=== PATIENT | male | born 1960 | race Caucasian/White ===

== ENCOUNTER → 2017-12-07 15:52 | Outpatient (CLI) | payer BC, SELFPAY ==
[2017-12-09 14:41] LABS: Fecal Immunochemical Test NOT DETECTED
== END ==
PROVIDERS: PCP Nurse Practitioner Family; Visit Provider Nurse Practitioner Family
DX: Z12.11 Encounter for screening for malignant neoplasm of colon (principal)
CPT/HCPCS: 82274

== ENCOUNTER 2020-09-02 17:40 | Emergency (ER) | payer BC, SELFPAY ==
[2020-09-02 17:46] VITALS: BP 149/67; PULSE 70; RESP 16; TEMP 37.2; O2SAT 95; BMI 26.6
--- NOTE | 2020-09-02 18:15 | PC.NURSE ---
Pt right elbox edematous, soft to touch, pt denies pain
--- NOTE | 2020-09-02 18:36 | ED.UPPEXIN ---
HPI - Extremity Injury (Upper) General Chief Complaint: Extremity Injury, Upper Stated Complaint: Bump on RT elbow Time Seen by Provider: 09/02/20 18:36 Source: patient Mode of arrival: Ambulatory Limitations: no limitations History of Present Illness HPI narrative: 60-year-old male comes emergency department with complaint of swelling of his right elbow. Patient states he had bumped it on a hard corner. Patient states within 5 minutes he developed swelling over the elbow itself. It is localized just to the elbow. He has some very mild tenderness at the point of the but denies any other injury or pain. Patient denies any redness, warmth or other skin changes. He denies any numbness or tingling. He denies any weakness. Patient does not have any pain with range of motion. Patient does take an aspirin daily. He has not had similar symptoms in the past. Related Data Home Medications Medication Instructions Recorded Confirmed Fish Oil (#FISH OIL) 1 iu PO Q DAY #0 03/18/11 04/15/18 ASPIRIN (Aspir-Low) 81 mg PO Q DAY #0 10/14/11 04/15/18 ibuprofen 600 mg PO Q8HP #0 10/14/11 04/15/18 ascorbic acid (vitamin C) 500 mg mg PO cap 04/15/18 04/15/18 capsule cholecalciferol (vitamin D3) 50 2,000 unit PO DAILY 04/15/18 04/15/18 mcg (2,000 unit) capsule Previous Rx's Medication Instructions Recorded lisinopril 10 mg tablet 10 mg PO Q DAY #60 tab 04/22/18 Allergies Allergy/AdvReac Type Severity Reaction Status Date / Time No Known Drug Allergies Allergy Unverified 04/15/18 08:27 Review of Systems Review of Systems ROS Unobtainable: All systems reviewed & are unremarkable except as noted in HPI and below Patient History Medical History Foot pain (~2011) Hyperlipidemia Hypertension Left bundle branch block (LBBB) (2013) Rupture of right patellar tendon Seizures (1965) Splinter in skin Surgical History Anesthesia History of vasectomy (2008) Normal coronary angiogram (12/24/13) S/P tendon repair (2013) Family History (Updated 10/10/14 @ 00:00 by Conversion Provider) Father Age: 90 Prostate cancer Hypertension Grandfather Stroke Grandmother Mental health problem Mother Age: 84 Hypertension Cancer of breast Grandfather Prostate cancer Sister Type I diabetes mellitus Sister Diabetes type 2, controlled Hypertension Grandmother No problems noted. Social History Smoking Status: Former smoker alcohol intake: current (A liter and a half of wine a week) substance use type: does not use Smoking Status: Former smoker alcohol intake frequency: 0-2 drinks per day Substance Use Type: does not use Exam Narrative Exam Narrative: GENERAL: Alert and oriented x three, well-nourished male in mild distress. HEENT: Head normocephalic, atraumatic, EOMI, pupils reactive, face symmetric, moist mucous membranes NECK: Supple, full range of motion EXTREMITIES: Normal range of motion, no clubbing or edema. Neurovascularly intact. Patient has full range of motion of the fingers, wrist and elbow and shoulder. Patient has very mild tenderness at the point of the elbow. Does not have any significant bony tenderness on exam. He has some mild swelling elbow over the area of the bursa which is soft and easily malleable. Patient has no warmth, erythema, laceration or skin changes. He has no swelling extending up the arm. He has 2+ radial pulse an cap refill less than 2 seconds in all 5 fingers. NEUROLOGICAL: Cranial nerves II through XII grossly intact. Moving all extremities SKIN: Warm, dry, no petechiae, no rashes or lesions. Initial Vital Signs Initial Vital Signs: Vital Signs Temperature 99.0 F 09/02/20 17:46 Pulse Rate 70 09/02/20 17:46 Respiratory Rate 16 09/02/20 17:46 Blood Pressure 149/67 H 09/02/20 17:46 Pulse Oximetry 95 09/02/20 17:46 Course Vital Signs Vital signs: Vital Signs - 8 hr 09/02/20 17:46 Temperature 99.0 F Pulse Rate 70 Respiratory Rate 16 Blood Pressure 149/67 H Pulse Oximetry 95 MDM - Extremity Injury (Upper) MDM Narrative Medical decision making narrative: This is a 60-year-old male with traumatic bursitis with mild swelling and no obvious laceration or skin changes. Patient has some mild tenderness. Patient defers any imaging and on exam my suspicion for fracture is low and feels is likely an appropriate choice. Return precautions were discussed as well as signs and symptoms to watch for. Discharge Plan Departure Patient Disposition: Home Clinical Impression: Bursitis due to trauma Instructions: DI for Bursitis Activity Restrictions/Additional Instructions: Follow with your physician if your symptoms are not improving in the next week to 2 weeks. You may use a compression bandage or Rickey wrap to the area. You may take Tylenol up to a 1000 mg every 8 hours as needed for pain. Continue home medications as prescribed. Please return for fevers, increasing redness, swelling, pain, inability to flex or extend her arm, new numbness, tingling or weakness or other new or concerning symptoms. Prescriptions: No Action Fish Oil (#FISH OIL) 1 iu PO Q DAY Qty: 0 RF: 0 ibuprofen 600 MG tablet 600 mg PO Q8HP Qty: 0 RF: 0 ASPIRIN (Aspir-Low) 81 mg PO Q DAY Qty: 0 RF: 0 lisinopril 10 mg tablet 10 mg PO Q DAY Qty: 60 RF: 0 ascorbic acid (vitamin C) 500 mg capsule PO RF: 0 cholecalciferol (vitamin D3) 2,000 unit capsule 2,000 unit PO DAILY RF: 0 Referrals: Didi Solomon ARNP [Primary Care Provider] -
[2020-09-02 19:15] VITALS: PULSE 72; RESP 16; O2SAT 98
== END 2020-09-02 19:16 | disposition home or self-care (01) ==
PROVIDERS: Emergency Provider Emergency Medicine; PCP Internal Medicine
DX: M71.9 Bursopathy, unspecified (principal)
CPT/HCPCS: 99281

== ENCOUNTER 2021-03-14 07:21 | Emergency (ER) | payer BC, SELFPAY ==
[2021-03-14] VITALS (21 sets, daily range): BP systolic 106–187; BP diastolic 62–100; PULSE 55–69; RESP 14–29; TEMP 36.4; O2SAT 93–98; BMI 26.6
--- NOTE | 2021-03-14 07:27 | DI.RAD.S_ITS ---
PROCEDURE: XR CHEST 1V INDICATIONS: chest pain TECHNIQUE: One view of the chest was acquired. COMPARISON: [facility], , CHEST 2 VIEW, 11/27/2009, 11:54. FINDINGS: Surgical changes and devices: None. Lungs and pleura: Lungs are clear. No pleural effusions or pneumothorax. Mediastinum: Mediastinal contours appear normal. Heart size is minimally prominent. Bones and chest wall: No suspicious bony lesions. Overlying soft tissues appear unremarkable. IMPRESSION: No acute pulmonary process. Dictated by: Buffy Beaulieu M.D. on 03/14/2021 at 8:01 Approved by: Buffy Beaulieu M.D. on 03/14/2021 at 10:33
--- NOTE | 2021-03-14 07:48 | ED_ITS ---
HPI - Dizziness <Low Callahan MD - Last Filed: 03/25/21 07:04> General Chief Complaint: Dizziness Stated Complaint: DIZZINESS, HEADACHE LAST NIGHT, HIGH BP Time Seen by Provider: 03/14/21 07:35 Source: patient Mode of arrival: Ambulatory Limitations: no limitations History of Present Illness HPI Narrative: Patient here for complaints of dizziness and resolved headache. Patient states started last night. Headache was very bile duct and diffuse. Has resolved. No headache today. Lightheaded feeling balance but no numbness tingling weakness. No slurred speech. No vision changes or hearing changes other than feeling pressure in the left ear greater than right. History of sinusitis. No cough cold congestion fever chills. No chest pain palpitations. Patient seen by primary care 1 week ago and had elevated blood pressure systolic 170. Had it checked the following day by himself at home and resolved. Usually systolic is 130. Has been on lisinopril for many years. Recently in the past 6 months lisinopril raised up to 20 mg daily in the morning. He took it this morning at 6:15 a.m. does have history of low heart rate and left bundle-branch block. History heart catheterization 8 years ago. Patient states it was normal. Related Data Home Medications Medication Instructions Recorded Confirmed Fish Oil (#FISH OIL) 1 iu PO Q DAY #0 03/18/11 04/15/18 ASPIRIN (Aspir-Low) 81 mg PO Q DAY #0 10/14/11 04/15/18 ibuprofen 600 mg tablet 600 mg PO Q8HP #0 10/14/11 04/15/18 ascorbic acid (vitamin C) 500 mg mg PO cap 04/15/18 04/15/18 capsule cholecalciferol (vitamin D3) 50 2,000 unit PO DAILY 04/15/18 04/15/18 mcg (2,000 unit) capsule Previous Rx's Medication Instructions Recorded lisinopril 10 mg tablet 10 mg PO Q DAY #60 tab 04/22/18 Allergies Allergy/AdvReac Type Severity Reaction Status Date / Time No Known Drug Allergies Allergy Verified 03/14/21 07:28 Review of Systems <Low Callahan MD - Last Filed: 03/25/21 07:04> Review of Systems Narrative: GENERAL: Denies chills, fatigue, malaise, fever, sweats. HEENT: Denies sinus pain, positive left ear pain, denies sore throat RESPIRATORY: Denies dyspnea, cough CARDIOVASCULAR: Denies chest pain, palpitations GASTROINTESTINAL: Denies nausea, vomiting, abdominal pain : Denies dysuria, frequency, hematuria MUSCULOSKELETAL: denies muscle or bony pain SKIN: Denies rash, skin lesions NEUROLOGIC: Denies weakness, numbness, positive for dizziness/headache ROS Unobtainable: All systems reviewed & are unremarkable except as noted in HPI and below Patient History <Low Callahan MD - Last Filed: 03/25/21 07:04> Medical History Foot pain (~2011) Hyperlipidemia Hypertension Left bundle branch block (LBBB) (2013) Rupture of right patellar tendon Seizures (1965) Splinter in skin Surgical History Anesthesia History of vasectomy (2008) Normal coronary angiogram (12/24/13) S/P tendon repair (2013) Family History Father Age: 91 Prostate cancer Hypertension Grandfather Stroke Grandmother Mental health problem Mother Age: 85 Hypertension Cancer of breast Grandfather Prostate cancer Sister Type I diabetes mellitus Sister Diabetes type 2, controlled Hypertension Grandmother No problems noted. Social History Smoking Status: Former smoker alcohol intake: current (A liter and a half of wine a week) substance use type: does not use Smoking Status: Former smoker alcohol intake frequency: 0-2 drinks per day Substance Use Type: does not use Exam <Low Callahan MD - Last Filed: 03/25/21 07:04> Narrative Exam Narrative: GENERAL: in no distress, not toxic not dyspneic HEAD: Normocephalic. EYES: Pupils equal round No scleral icterus. ENT: Mucous membranes moist. Clear tympanic membranes bilaterally. No effusions, nontender bilateral frontal and maxillary sinuses NECK: Trachea midline. CARDIOVASCULAR: Regular rate and rhythm without murmurs RESPIRATORY: Clear to auscultation. Breath sounds equal bilaterally. No wheezes, rales, or rhonchi. GASTROINTESTINAL: Abdomen soft, non-tender no peritoneal signs no epigastric tenderness bowel sounds present. EXTREMITIES: No gross deformities. BACK: No flank tenderness. NEURO: AOx4. Clear speech no facial droop steady self gait no foot drop. Light touch intact to bilateral face hands. Strong equal ethics instructor bilaterally and ankle flexion hip flexion and knee flexion. Steady Romberg, negative pronator drift SKIN: Warm and dry PSYCH: Not anxious, is cooperative Initial Vital Signs Initial Vital Signs: Vital Signs Temperature 97.6 F 03/14/21 07:22 Pulse Rate 69 03/14/21 07:22 Respiratory Rate 14 03/14/21 07:22 Blood Pressure 187/80 H 03/14/21 07:22 Pulse Oximetry 96 03/14/21 07:22 <Marcy Alfaro DO - Last Filed: 03/14/21 18:47> Initial Vital Signs Initial Vital Signs: Vital Signs Temperature 97.6 F 03/14/21 07:22 Pulse Rate 69 03/14/21 07:22 Respiratory Rate 14 03/14/21 07:22 Blood Pressure 187/80 H 03/14/21 07:22 Pulse Oximetry 96 03/14/21 07:22 Scores <Low Callahan MD - Last Filed: 03/25/21 07:04> NIH Stroke Scale Total NIH Stroke scale score: 0 <Marcy Alfaro DO - Last Filed: 03/14/21 18:47> NIH Stroke Scale Level of Conciousness: Alert, keenly responsive Ask month/age: Answers both questions correctly. Open/close eyes, close hand: Performs both tasks correctly Best gaze horizontal: Normal Visual ayala: No visual loss Facial palsy: Normal symetrical movement Left arm drift: No drift for full 10 sec Right arm drift: No drift for full 10 sec Left leg drift: No drift for full 5 sec Right leg drift: No drift for full 5 sec Limb ataxia: Absent Sensory on face/arms/legs: Normal, no sensory loss Best language: No aphasia, normal Dysarthria: Normal Extinction or inattention: No abnormality Total NIH Stroke scale score: 0 Course <Low Callahan MD - Last Filed: 03/25/21 07:04> Course Course Narrative: No new issues during course of stay. Reviewed lipase with patient. He drinks 1 glass of wine daily. Denies any abdominal pain no nausea or vomiting. 12 pm s/o dr alfaro, awaiting for available receiving facility with heart catheterization resources Orders Ordered: Discontinued Medications Aspirin (Aspirin 81 Mg Chew Tab) 324 mg PO NOW ONE Stop: 03/14/21 08:32 Last Admin: 03/14/21 08:41 Dose: 324 mg Documented by: MILENA Clopidogrel Bisulfate (Clopidogrel 75 Mg Tablet) 300 mg PO NOW ONE Stop: 03/14/21 08:32 Last Admin: 03/14/21 08:42 Dose: 300 mg Documented by: MILENA Heparin Sodium (Porcine) (Heparin 5,000 Unit/Ml Vial) 6,500 unit 80 unit/kg (6500 unit) IV NOW ONE Stop: 03/14/21 08:32 Last Admin: 03/14/21 08:53 Dose: 6,500 unit Documented by: MILENA Hydralazine HCl (Hydralazine 20 Mg/Ml Vial) 5 mg IV NOW ONE Stop: 03/14/21 08:34 Last Admin: 03/14/21 08:45 Dose: 5 mg Documented by: MILENA Heparin Sodium/Dextrose (Heparin Drip) 25,000 unit in 500 mls @ 19.595 mls/hr IV CONT BRITTNEY; Protocol Last Titration: 03/14/21 13:31 Dose: 0 units/kg/hr, 0 mls/hr Documented by: Admin: 03/14/21 08:58 Dose: 12 units/kg/hr, 19.595 mls/hr Documented by: MILENA Reevaluation(s) Reevaluation #1: Reviewed results with patient. Denies any abdominal pain. Drinks 1 glass of wine nightly. Denies any abdominal pain or nausea and vomiting. No back pain. Reviewed lipase with him. Time: 08:40 Consultations Consultation #1: Spoke with cardiology, dr tee, patient to be transferred for heart catheterization. He understands at this time shortage on staff and [place] hospitals. No beta-buck at this time due to low heart rate. Nitroglycerin could be given for high blood pressure. If Plavix heparin and aspirin. Consultation #2: Spoke with [facility] cardiology Dr. waggoner, he will accept patient providing bed availability Time: 11:26 Vital Signs Vital signs: Vital Signs - 8 hr 03/14/21 11:00 03/14/21 11:30 03/14/21 12:00 Pulse Rate 58 L 59 L 57 L Respiratory Rate 17 18 18 Blood Pressure 128/69 120/69 135/75 Pulse Oximetry 95 95 94 03/14/21 12:30 03/14/21 13:00 03/14/21 13:30 Pulse Rate 56 L 56 L 64 Respiratory Rate 17 20 18 Blood Pressure 127/77 142/77 H 131/75 Pulse Oximetry 94 93 96 03/14/21 14:00 03/14/21 14:30 03/14/21 15:00 Pulse Rate 55 L 58 L 61 Respiratory Rate 21 22 18 Blood Pressure 124/73 158/88 H 149/86 H Pulse Oximetry 96 97 95 03/14/21 15:30 03/14/21 16:00 03/14/21 16:30 Pulse Rate 56 L 62 61 Respiratory Rate 19 28 H 26 H Blood Pressure 127/74 135/73 106/65 Pulse Oximetry 95 96 93 03/14/21 17:00 03/14/21 17:30 03/14/21 18:00 Pulse Rate 63 58 L 58 L Respiratory Rate 22 29 H 25 H Blood Pressure 128/62 137/66 134/73 Pulse Oximetry 94 94 94 <Marcy Alfaro, DO - Last Filed: 03/14/21 18:47> Orders Ordered: Discontinued Medications Aspirin (Aspirin 81 Mg Chew Tab) 324 mg PO NOW ONE Stop: 03/14/21 08:32 Last Admin: 03/14/21 08:41 Dose: 324 mg Documented by: MILENA Clopidogrel Bisulfate (Clopidogrel 75 Mg Tablet) 300 mg PO NOW ONE Stop: 03/14/21 08:32 Last Admin: 03/14/21 08:42 Dose: 300 mg Documented by: MILENA Heparin Sodium (Porcine) (Heparin 5,000 Unit/Ml Vial) 6,500 unit 80 unit/kg (6500 unit) IV NOW ONE Stop: 03/14/21 08:32 Last Admin: 03/14/21 08:53 Dose: 6,500 unit Documented by: MILENA Hydralazine HCl (Hydralazine 20 Mg/Ml Vial) 5 mg IV NOW ONE Stop: 03/14/21 08:34 Last Admin: 03/14/21 08:45 Dose: 5 mg Documented by: MILENA Heparin Sodium/Dextrose (Heparin Drip) 25,000 unit in 500 mls @ 19.595 mls/hr IV CONT BRITTNEY; Protocol Last Titration: 03/14/21 13:31 Dose: 0 units/kg/hr, 0 mls/hr Documented by: Admin: 03/14/21 08:58 Dose: 12 units/kg/hr, 19.595 mls/hr Documented by: MILENA Vital Signs Vital signs: Vital Signs - 8 hr 03/14/21 11:00 03/14/21 11:30 03/14/21 12:00 Pulse Rate 58 L 59 L 57 L Respiratory Rate 17 18 18 Blood Pressure 128/69 120/69 135/75 Pulse Oximetry 95 95 94 03/14/21 12:30 03/14/21 13:00 03/14/21 13:30 Pulse Rate 56 L 56 L 64 Respiratory Rate 17 20 18 Blood Pressure 127/77 142/77 H 131/75 Pulse Oximetry 94 93 96 03/14/21 14:00 03/14/21 14:30 03/14/21 15:00 Pulse Rate 55 L 58 L 61 Respiratory Rate 21 22 18 Blood Pressure 124/73 158/88 H 149/86 H Pulse Oximetry 96 97 95 03/14/21 15:30 03/14/21 16:00 03/14/21 16:30 Pulse Rate 56 L 62 61 Respiratory Rate 19 28 H 26 H Blood Pressure 127/74 135/73 106/65 Pulse Oximetry 95 96 93 03/14/21 17:00 03/14/21 17:30 03/14/21 18:00 Pulse Rate 63 58 L 58 L Respiratory Rate 22 29 H 25 H Blood Pressure 128/62 137/66 134/73 Pulse Oximetry 94 94 94 MDM - Dizziness <Low Callahan MD - Last Filed: 03/25/21 07:04> Differential Diagnosis Differential diagnosis: Likely adverse reaction to drug, benign paroxysmal positional vertigo, orthostatic hypotension, vertebral basilar insufficiency, cerebrovascular accident, acute vestibular neuronitis, transient cerebral ischemia and other (Considered neurological source of dizziness. No CT indicated this time. No focal deficits./non-STEMI) Lab Data Result diagrams: 03/14/21 07:33 03/14/21 07:33 Labs: Lab Results 03/14/21 03/14/21 03/14/21 Range/Units 07:33 07:33 07:33 WBC 4.7 (4.5-11.0) X10^3/uL RBC 4.49 L (4.5-5.9) X10^6/uL Hgb 14.3 (13.5-17.5) g/dL Hct 42.0 (41-53) % MCV 93.6 (80-100) fL MCH 31.9 (26-34) PG MCHC 34.0 (30-36) % RDW 13.3 (11.6-14.8) % Plt Count 180 (150-400) X10^3/uL Neut % (Auto) 60.5 (50-75) % Lymph % (Auto) 27.4 (25-40) % Centre % (Auto) 9.8 (3-14) % Eos % (Auto) 1.6 L (2-4) % Baso % (Auto) 0.7 (0-2) % Neut # (Auto) 2900 (7666-8442) /uL Lymph # (Auto) 1300 (0802-6156) /uL Centre # (Auto) 500 (0-900) /uL Eos # (Auto) 100 (0-450) /uL Baso # (Auto) 0 (0-100) /uL PT 12.3 (10.1-12.7) SECONDS INR 1.1 (0.9-1.3) APTT 37 H (26.4-36.2) SECONDS Sodium 137 (137-145) mmol/L Potassium 4.5 (3.4-5.1) mmol/L Chloride 101 (98-107) mmol/L Carbon Dioxide 29 (22-32) mmol/L BUN 16 (9-20) mg/dL Creatinine 0.88 (0.66-1.25) mg/dL Estimated GFR > 60.0 (>60) mL/min BUN/Creatinine Ratio 18.2 (6-22) Glucose 160 H (80-110) mg/dL Calcium 9.5 (8.4-10.2) mg/dL Total Bilirubin 0.6 (0.2-1.3) mg/dL AST 30 (17-59) IU/L ALT 32 (<50) IU/L Alkaline Phosphatase 47 (38-126) U/L Total Creatine Kinase 111 (55-170) U/L CK-MB (CK-2) 1.46 (<2.37) ng/mL CK-MB (CK-2) Rel Index 1.3 L (1.5-5.0) % Troponin I 0.041 H (0.01-0.034) ng/mL Total Protein 6.8 (6.3-8.2) g/dL Albumin 4.2 (3.5-5.0) g/dL Globulin 2.6 (1.7-4.1) g/dL Albumin/Globulin Ratio 1.6 (1.0-2.8) Lipase 1211 H (23-300) U/L SARS-CoV-2 (PCR) (Negative) 03/14/21 03/14/21 03/14/21 Range/Units 09:37 11:45 11:45 WBC (4.5-11.0) X10^3/uL RBC (4.5-5.9) X10^6/uL Hgb (13.5-17.5) g/dL Hct (41-53) % MCV (80-100) fL MCH (26-34) PG MCHC (30-36) % RDW (11.6-14.8) % Plt Count (150-400) X10^3/uL Neut % (Auto) (50-75) % Lymph % (Auto) (25-40) % Centre % (Auto) (3-14) % Eos % (Auto) (2-4) % Baso % (Auto) (0-2) % Neut # (Auto) (0042-5069) /uL Lymph # (Auto) (9473-0419) /uL Centre # (Auto) (0-900) /uL Eos # (Auto) (0-450) /uL Baso # (Auto) (0-100) /uL PT (10.1-12.7) SECONDS INR (0.9-1.3) APTT (26.4-36.2) SECONDS Sodium (137-145) mmol/L Potassium (3.4-5.1) mmol/L Chloride (98-107) mmol/L Carbon Dioxide (22-32) mmol/L BUN (9-20) mg/dL Creatinine (0.66-1.25) mg/dL Estimated GFR (>60) mL/min BUN/Creatinine Ratio (6-22) Glucose (80-110) mg/dL Calcium (8.4-10.2) mg/dL Total Bilirubin (0.2-1.3) mg/dL AST (17-59) IU/L ALT (<50) IU/L Alkaline Phosphatase (38-126) U/L Total Creatine Kinase 103 (55-170) U/L CK-MB (CK-2) 1.32 (<2.37) ng/mL CK-MB (CK-2) Rel Index 1.3 L (1.5-5.0) % Troponin I 0.025 (0.01-0.034) ng/mL Total Protein (6.3-8.2) g/dL Albumin (3.5-5.0) g/dL Globulin (1.7-4.1) g/dL Albumin/Globulin Ratio (1.0-2.8) Lipase 621 H (23-300) U/L SARS-CoV-2 (PCR) Negative (Negative) 03/14/21 Range/Units 16:00 WBC (4.5-11.0) X10^3/uL RBC (4.5-5.9) X10^6/uL Hgb (13.5-17.5) g/dL Hct (41-53) % MCV (80-100) fL MCH (26-34) PG MCHC (30-36) % RDW (11.6-14.8) % Plt Count (150-400) X10^3/uL Neut % (Auto) (50-75) % Lymph % (Auto) (25-40) % Centre % (Auto) (3-14) % Eos % (Auto) (2-4) % Baso % (Auto) (0-2) % Neut # (Auto) (0930-2061) /uL Lymph # (Auto) (0568-2442) /uL Centre # (Auto) (0-900) /uL Eos # (Auto) (0-450) /uL Baso # (Auto) (0-100) /uL PT (10.1-12.7) SECONDS INR (0.9-1.3) APTT (26.4-36.2) SECONDS Sodium (137-145) mmol/L Potassium (3.4-5.1) mmol/L Chloride (98-107) mmol/L Carbon Dioxide (22-32) mmol/L BUN (9-20) mg/dL Creatinine (0.66-1.25) mg/dL Estimated GFR (>60) mL/min BUN/Creatinine Ratio (6-22) Glucose (80-110) mg/dL Calcium (8.4-10.2) mg/dL Total Bilirubin (0.2-1.3) mg/dL AST (17-59) IU/L ALT (<50) IU/L Alkaline Phosphatase (38-126) U/L Total Creatine Kinase (55-170) U/L CK-MB (CK-2) (<2.37) ng/mL CK-MB (CK-2) Rel Index (1.5-5.0) % Troponin I 0.025 (0.01-0.034) ng/mL Total Protein (6.3-8.2) g/dL Albumin (3.5-5.0) g/dL Globulin (1.7-4.1) g/dL Albumin/Globulin Ratio (1.0-2.8) Lipase (23-300) U/L SARS-CoV-2 (PCR) (Negative) Imaging Data Chest x-ray: Radiologist's Impression: [address] [address] XRay Report Signed Patient: Ulisses Luong MR#: [id number] : 1960 Acct:[id number] Age/Sex: 60 / M Date of Service: 03/14/21 Loc: ED Accession Number: [id number] ?? Procedure: XR chest 1V Ordering Provider: Low Callahan MD PROCEDURE:? XR CHEST 1V ? INDICATIONS:? chest pain ? TECHNIQUE:? One view of the chest was acquired.? ? COMPARISON:? [facility], , CHEST 2 VIEW, 11/27/2009, 11:54. ? FINDINGS:? ? Surgical changes and devices:? None.? ? Lungs and pleura:? Lungs are clear.? No pleural effusions or pneumothorax.? ? Mediastinum:? Mediastinal contours appear normal.? Heart size is minimally prominent.? ? Bones and chest wall:? No suspicious bony lesions.? Overlying soft tissues appear unremarkable.? ? IMPRESSION:? No acute pulmonary process. ? ? Dictated by: Buffy Beaulieu M.D. on 03/14/2021 at 8:01 ? ? Approved by: Buffy Beaulieu M.D. on 03/14/2021 at 10:33 ? ECG Data Interpretation: Sinus bradycardia rate 55 left bundle branch block, history of left bundle- branch block, no ST elevation or depression <Marcy Alfaro, DO - Last Filed: 03/14/21 18:47> Lab Data Labs: Lab Results 03/14/21 03/14/21 03/14/21 Range/Units 07:33 07:33 07:33 WBC 4.7 (4.5-11.0) X10^3/uL RBC 4.49 L (4.5-5.9) X10^6/uL Hgb 14.3 (13.5-17.5) g/dL Hct 42.0 (41-53) % MCV 93.6 (80-100) fL MCH 31.9 (26-34) PG MCHC 34.0 (30-36) % RDW 13.3 (11.6-14.8) % Plt Count 180 (150-400) X10^3/uL Neut % (Auto) 60.5 (50-75) % Lymph % (Auto) 27.4 (25-40) % Centre % (Auto) 9.8 (3-14) % Eos % (Auto) 1.6 L (2-4) % Baso % (Auto) 0.7 (0-2) % Neut # (Auto) 2900 (3714-5730) /uL Lymph # (Auto) 1300 (9642-1000) /uL Centre # (Auto) 500 (0-900) /uL Eos # (Auto) 100 (0-450) /uL Baso # (Auto) 0 (0-100) /uL PT 12.3 (10.1-12.7) SECONDS INR 1.1 (0.9-1.3) APTT 37 H (26.4-36.2) SECONDS Sodium 137 (137-145) mmol/L Potassium 4.5 (3.4-5.1) mmol/L Chloride 101 (98-107) mmol/L Carbon Dioxide 29 (22-32) mmol/L BUN 16 (9-20) mg/dL Creatinine 0.88 (0.66-1.25) mg/dL Estimated GFR > 60.0 (>60) mL/min BUN/Creatinine Ratio 18.2 (6-22) Glucose 160 H (80-110) mg/dL Calcium 9.5 (8.4-10.2) mg/dL Total Bilirubin 0.6 (0.2-1.3) mg/dL AST 30 (17-59) IU/L ALT 32 (<50) IU/L Alkaline Phosphatase 47 (38-126) U/L Total Creatine Kinase 111 (55-170) U/L CK-MB (CK-2) 1.46 (<2.37) ng/mL CK-MB (CK-2) Rel Index 1.3 L (1.5-5.0) % Troponin I 0.041 H (0.01-0.034) ng/mL Total Protein 6.8 (6.3-8.2) g/dL Albumin 4.2 (3.5-5.0) g/dL Globulin 2.6 (1.7-4.1) g/dL Albumin/Globulin Ratio 1.6 (1.0-2.8) Lipase 1211 H (23-300) U/L SARS-CoV-2 (PCR) (Negative) 03/14/21 03/14/21 03/14/21 Range/Units 09:37 11:45 11:45 WBC (4.5-11.0) X10^3/uL RBC (4.5-5.9) X10^6/uL Hgb (13.5-17.5) g/dL Hct (41-53) % MCV (80-100) fL MCH (26-34) PG MCHC (30-36) % RDW (11.6-14.8) % Plt Count (150-400) X10^3/uL Neut % (Auto) (50-75) % Lymph % (Auto) (25-40) % Centre % (Auto) (3-14) % Eos % (Auto) (2-4) % Baso % (Auto) (0-2) % Neut # (Auto) (5817-8922) /uL Lymph # (Auto) (3655-8089) /uL Centre # (Auto) (0-900) /uL Eos # (Auto) (0-450) /uL Baso # (Auto) (0-100) /uL PT (10.1-12.7) SECONDS INR (0.9-1.3) APTT (26.4-36.2) SECONDS Sodium (137-145) mmol/L Potassium (3.4-5.1) mmol/L Chloride (98-107) mmol/L Carbon Dioxide (22-32) mmol/L BUN (9-20) mg/dL Creatinine (0.66-1.25) mg/dL Estimated GFR (>60) mL/min BUN/Creatinine Ratio (6-22) Glucose (80-110) mg/dL Calcium (8.4-10.2) mg/dL Total Bilirubin (0.2-1.3) mg/dL AST (17-59) IU/L ALT (<50) IU/L Alkaline Phosphatase (38-126) U/L Total Creatine Kinase 103 (55-170) U/L CK-MB (CK-2) 1.32 (<2.37) ng/mL CK-MB (CK-2) Rel Index 1.3 L (1.5-5.0) % Troponin I 0.025 (0.01-0.034) ng/mL Total Protein (6.3-8.2) g/dL Albumin (3.5-5.0) g/dL Globulin (1.7-4.1) g/dL Albumin/Globulin Ratio (1.0-2.8) Lipase 621 H (23-300) U/L SARS-CoV-2 (PCR) Negative (Negative) 03/14/21 Range/Units 16:00 WBC (4.5-11.0) X10^3/uL RBC (4.5-5.9) X10^6/uL Hgb (13.5-17.5) g/dL Hct (41-53) % MCV (80-100) fL MCH (26-34) PG MCHC (30-36) % RDW (11.6-14.8) % Plt Count (150-400) X10^3/uL Neut % (Auto) (50-75) % Lymph % (Auto) (25-40) % Centre % (Auto) (3-14) % Eos % (Auto) (2-4) % Baso % (Auto) (0-2) % Neut # (Auto) (2348-7503) /uL Lymph # (Auto) (5544-4691) /uL Centre # (Auto) (0-900) /uL Eos # (Auto) (0-450) /uL Baso # (Auto) (0-100) /uL PT (10.1-12.7) SECONDS INR (0.9-1.3) APTT (26.4-36.2) SECONDS Sodium (137-145) mmol/L Potassium (3.4-5.1) mmol/L Chloride (98-107) mmol/L Carbon Dioxide (22-32) mmol/L BUN (9-20) mg/dL Creatinine (0.66-1.25) mg/dL Estimated GFR (>60) mL/min BUN/Creatinine Ratio (6-22) Glucose (80-110) mg/dL Calcium (8.4-10.2) mg/dL Total Bilirubin (0.2-1.3) mg/dL AST (17-59) IU/L ALT (<50) IU/L Alkaline Phosphatase (38-126) U/L Total Creatine Kinase (55-170) U/L CK-MB (CK-2) (<2.37) ng/mL CK-MB (CK-2) Rel Index (1.5-5.0) % Troponin I 0.025 (0.01-0.034) ng/mL Total Protein (6.3-8.2) g/dL Albumin (3.5-5.0) g/dL Globulin (1.7-4.1) g/dL Albumin/Globulin Ratio (1.0-2.8) Lipase (23-300) U/L SARS-CoV-2 (PCR) (Negative) Imaging Data US - abdomen: Radiologist's Impression: PROCEDURE: US ABDOMEN LIMITED ? INDICATIONS:? pancreatitis ? TECHNIQUE:? Real-time focused scanning was performed of the abdomen, with image documentation.? ? COMPARISON:? None. ? FINDINGS:? The liver demonstrates normal size. The liver demonstrates generalized moderately increased echogenicity. This decreases ultrasound sensitivity for detection of hepatic masses.? ? The gallbladder is contracted, which limits its evaluation.? No findings of gallstones or sludge are seen.? The gallbladder wall is not thickened, measuring 3 mm or less.? No specific pericholecystic fluid is seen.? The sonographic Sanchez sign is negative. ? There is no biliary dilatation, the common bile duct measures 2-3 mm.? ? The pancreas is not seen on this study. ? Overall scan quality is limited secondary to bowel gas. ? ? IMPRESSION:? Pancreas not seen. ? The liver demonstrates increased echogenicity.? This finding is nonspecific, yet it is most commonly attributed to fatty infiltration.? ? ? Dictated by: Bk Ruiz M.D. on 03/14/2021 at 17:06 ? ? ECG Data Interpretation: Sinus bradycardia rate 55 left bundle branch block, history of left bundle- branch block, no ST elevation or depression EKG 2. Sinus rhythm rate 62 OH interval 196 QRS and 58 QTC [address] changes MDM Narrative Medical decision making narrative: Received sign-out from Dr. Callahan, seen evaluated patient myself. He states that he came to the emergency department because she was little lightheaded today and he had elevated blood pressure. He has no chest pain. It sounds as though he does have occasional palpitations and PVCs which is known he also has a known left bundle-branch block. He was recently started on Lipitor by his primary care provider and started on Xeo patch. He has no numbness tingling or weakness his NIH stroke scale is 0. He had indeterminate troponin of 0.041 and a repeat of 0.025 x2. He was recommended by cardiology that patient be transferred for cardiac catheterization. [id number] spoke with Dr. Tee, cardiology updated on patient's symptoms of lightheadedness and dizziness without chest pain troponin with never and NSTEMI range only the indeterminate range at this time does not qualify for heart catheterization does recommend echo and stress test I called and spoken with Dr. Marrufo on-call for PCP is updated her on patient's symptoms test results. Repeat lipase and multiple repeat troponins have stayed the same or improved. At this time does not think he need inpatient criteria she is happy to see patient in clinic tomorrow. Have discussed all testing results and new plan with patient. He overall appears well blood pressure has improved significantly emergency department without any intervention. He has no focal deficits he did not pass out at this time I see no need for any imaging at this time. Repeat troponins remain the same repeat EKG does not show any changes, I feel outpatient follow-up tomorrow is appropriate. Critical Care Time <Low Callahan MD - Last Filed: 03/25/21 07:04> Critical Care Time Attestation: Critical Care Time 35minutes: Critical care time is separate from other billable procedures. This critical care time includes consultation with family and other consulting doctors, review of records, and interpretation of data from labs, EKGs, imaging, etc. Discharge Plan Departure Patient Disposition: Home Clinical Impression: Lightheaded Instructions: Orthostatic Hypotension Activity Restrictions/Additional Instructions: *You have been diagnosed with lightheaded *What to do: Thank you so much today for your patience. Fortunately your blood work is overall reassuring. You may still need outpatient testing such as echocardiogram and stress test. *Continue to take medications as directed *Follow up with your primary care provider tomorrow, he will need to call the office in the morning and they will have availability for you *Return to ER if you should have increased lightheadedness, chest pain, numbness, tingling, weakness or persistently elevated blood pressure with top number greater than 185, or any new, worsening or concerning symptoms Prescriptions: No Action Fish Oil (#FISH OIL) 1 iu PO Q DAY Qty: 0 0RF ibuprofen 600 MG tablet 600 mg PO Q8HP Qty: 0 0RF ASPIRIN (Aspir-Low) 81 mg PO Q DAY Qty: 0 0RF lisinopril 10 mg tablet 10 mg PO Q DAY Qty: 60 0RF Rx Instructions: Patient still needs to establish with a new PCP prior to future fills. 04/22/18 ascorbic acid (vitamin C) 500 mg capsule PO 0RF cholecalciferol (vitamin D3) 2,000 unit capsule 2,000 unit PO DAILY 0RF Referrals: Didi Solomon ARNP [Primary Care Provider] -
[2021-03-14 07:51] LABS: Add Manual Diff / Slide Review NO; Basophils Absolute Auto 0 /uL (0-100); Basophils Percent Auto 0.7 % (0-2); Eosinophils Absolute Auto 100 /uL (0-450); Eosinophils Percent Auto 1.6 % (2-4); Hemoglobin 14.3 g/dL (13.5-17.5); Lymphocytes Absolute Auto 1300 /uL (1100-4500); Lymphocytes Percent Auto 27.4 % (25-40); Mean Corpuscular Hemoglobin 31.9 PG (26-34); Mean Corpuscular Volume 93.6 fL (80-100); Monocytes Absolute Auto 500 /uL (0-900); Monocytes Percent Auto 9.8 % (3-14); Neutrophils Absolute Auto 2900 /uL (1500-7000); Neutrophils Percent Auto 60.5 % (50-75); Platelet Count 180 X10^3/uL (150-400); Red Blood Cell Count 4.49 X10^6/uL (4.5-5.9); Red Cell Distribution Width 13.3 % (11.6-14.8); White Blood Cell Count 4.7 X10^3/uL (4.5-11.0)
[2021-03-14 08:03] LABS: INR 1.1 (0.9-1.3); Prothrombin Time 12.3 SECONDS (10.1-12.7)
[2021-03-14 08:06] LABS: Alanine Aminotransferase 32 IU/L (<50); Albumin 4.2 g/dL (3.5-5.0); Albumin Globulin Ratio 1.6 (1.0-2.8); Alkaline Phosphatase 47 U/L (38-126); Aspartate Aminotransferase 30 IU/L (17-59); BUN Creatinine Ratio 18.2 (6-22); Bilirubin Total 0.6 mg/dL (0.2-1.3); Blood Urea Nitrogen 16 mg/dL (9-20); Calcium 9.5 mg/dL (8.4-10.2); Carbon Dioxide 29 mmol/L (22-32); Chloride 101 mmol/L (98-107); Creatine Kinase 111 U/L (55-170); Estimated Glomerular Filt Rate > 60.0 mL/min (>60); Globulin 2.6 g/dL (1.7-4.1); Glucose 160 mg/dL (80-110); Lipase 1211 U/L (23-300); PTT Partial Thromboplastin Tim 37 SECONDS (26.4-36.2); Potassium 4.5 mmol/L (3.4-5.1); Sodium 137 mmol/L (137-145); Total Protein 6.8 g/dL (6.3-8.2)
[2021-03-14 08:17] LABS: Troponin I 0.041 ng/mL (0.01-0.034)
[2021-03-14 08:21] LABS: CKMB % Relative Index 1.3 % (1.5-5.0); Creatine Kinase MB 1.46 ng/mL (<2.37); HEMOLYSIS 17 (0-50)
[2021-03-14] MEDS: ASPIRIN 81 MG CHEW TAB 324 MG PO (08:41)
[2021-03-14] MEDS: CLOPIDOGREL 75 MG TABLET 300 MG PO (08:42)
[2021-03-14] MEDS: HYDRALAZINE 20 MG/ML VIAL 5 MG IV (08:45)
[2021-03-14] MEDS: HEPARIN 5,000 UNIT/ML VIAL 6500 UNIT IV (08:53)
[2021-03-14] MEDS: HEPARIN DRIP 25,000 UNIT/500 ML IV.SOLN 19.595 UNIT IV (08:58)
[2021-03-14 10:53] LABS: COVID19 - ADMIT (NP swab/PCR) Negative (Negative)
[2021-03-14 12:10] LABS: Creatine Kinase 103 U/L (55-170)
[2021-03-14 12:23] LABS: Troponin I 0.025 ng/mL (0.01-0.034)
[2021-03-14 12:26] LABS: CKMB % Relative Index 1.3 % (1.5-5.0); Creatine Kinase MB 1.32 ng/mL (<2.37)
--- NOTE | 2021-03-14 15:42 | DI.US.S_ITS ---
PROCEDURE: US ABDOMEN LIMITED INDICATIONS: pancreatitis TECHNIQUE: Real-time focused scanning was performed of the abdomen, with image documentation. COMPARISON: None. FINDINGS: The liver demonstrates normal size. The liver demonstrates generalized moderately increased echogenicity. This decreases ultrasound sensitivity for detection of hepatic masses. The gallbladder is contracted, which limits its evaluation. No findings of gallstones or sludge are seen. The gallbladder wall is not thickened, measuring 3 mm or less. No specific pericholecystic fluid is seen. The sonographic Sanchez sign is negative. There is no biliary dilatation, the common bile duct measures 2-3 mm. The pancreas is not seen on this study. Overall scan quality is limited secondary to bowel gas. IMPRESSION: Pancreas not seen. The liver demonstrates increased echogenicity. This finding is nonspecific, yet it is most commonly attributed to fatty infiltration. Dictated by: Bk Ruiz M.D. on 03/14/2021 at 17:06 Approved by: Bk Ruiz M.D. on 03/14/2021 at 17:07
[2021-03-14 15:54] LABS: Lipase 621 U/L (23-300)
[2021-03-14 16:45] LABS: Troponin I 0.025 ng/mL (0.01-0.034)
== END 2021-03-14 18:20 | disposition home or self-care (01) ==
PROVIDERS: Emergency Medicine; Emergency Provider Emergency Medicine; PCP Internal Medicine
DX: I95.1 Orthostatic hypotension (principal); R00.1 Bradycardia, unspecified; I44.7 Left bundle-branch block, unspecified; Z20.822 Contact with and (suspected) exposure to COVID-19
CPT/HCPCS: 36415; 71045; 76705; 80053; 82550; 82553; 83690; 84484; 85025; 85610; 85730; 87635; 93005; 96365; 96366; 96375; 99284; C9803; J0360; J1644

== ENCOUNTER → 2021-04-29 15:25 | Outpatient (CLI) | payer BC, SELFPAY ==
[2021-04-29 18:07] LABS: BUN Creatinine Ratio 16.9 (6-22); Blood Urea Nitrogen 15 mg/dL (9-20); Estimated Glomerular Filt Rate > 60.0 mL/min (>60)
== END ==
PROVIDERS: PCP Internal Medicine; Referring Provider Internal Medicine; Visit Provider Internal Medicine
DX: R74.8 Abnormal levels of other serum enzymes (principal)
CPT/HCPCS: 36415; 82565; 84520

== ENCOUNTER → 2021-04-30 14:18 | Outpatient (CLI) | payer BC, SELFPAY ==
--- NOTE | 2021-04-30 | DI.CT.S_ITS ---
PROCEDURE: CT ABDOMEN PELVIS W CON INDICATIONS: Abnormal levels of other serum enzymes TECHNIQUE: After the administration of oral and intravenous contrast, axial sections were acquired from the lung bases to the pubic symphysis. Coronal and sagittal reformats were performed. For radiation dose reduction, the following was used: automated exposure control, adjustment of mA and/or kV according to patient size. COMPARISON:None. FINDINGS: Image quality: Excellent. Lung bases: Lung bases are clear. Heart: No significant findings. ABDOMEN: Liver: There is diffuse hypoattenuation of the liver parenchyma relative to the spleen compatible with hepatic steatosis. Gallbladder: There are tiny punctate densities noted within the gallbladder neck possibly representing small gallstone. No CT evidence for acute cholecystitis. Biliary ducts: No intrahepatic or extrahepatic biliary ductal dilatation identified. Pancreas: Homogeneous enhancement without focal lesions or pancreatic ductal dilatation. No peripancreatic inflammation or organized fluid collections. Spleen: Unremarkable. Adrenal Glands: No suspicious adrenal nodules. Kidneys and Ureters: Kidneys are symmetric in size and enhancement, and there is no obstructive uropathy. No perinephric inflammatory changes. Ureters are normal in course and caliber. Stomach and Bowel: Stomach, small bowel loops, and colon are unremarkable. Peritoneum: No abnormal intraperitoneal fluid. No free air. Ventral Wall: No hernia. Abdominal Nodes: No retroperitoneal or mesenteric adenopathy by size criteria. Vessels: Aorta and inferior vena cava are normal in size. Scattered atherosclerotic calcifications of the abdominal aorta and iliac vessels without aneurysmal dilatation. PELVIS: Pelvic Organs: Unremarkable. Bladder: Unremarkable. Pelvic Nodes: No enlarged lymph nodes. Miscellaneous: No inguinal hernias are seen. Bones: No acute vertebral body compression fractures. Multilevel spondylitic changes throughout the imaged spine. No suspicious osseous lesions. Bilateral L4 pars defects with associated grade 1 anterolisthesis of L4 on L5. There is moderate spinal canal stenosis at this level. IMPRESSION: 1. Hepatic steatosis. 2. Normal appearance of the pancreas. 3. Tiny punctate density within the gallbladder neck likely representing a small gallstone. No CT evidence for acute cholecystitis. 4. Bilateral L4 pars defects with associated grade 1 anterolisthesis of L4 on L5 and moderate spinal canal stenosis at this level. Multilevel spondylosis of the imaged spine. 5. Atherosclerosis. Dictated by: Armand Rojas M.D. on 04/30/2021 at 17:14 Approved by: Armand Rojas M.D. on 04/30/2021 at 17:20
== END ==
PROVIDERS: PCP Internal Medicine; Referring Provider Internal Medicine; Visit Provider Internal Medicine
DX: K76.0 Fatty (change of) liver, not elsewhere classified (principal); R74.8 Abnormal levels of other serum enzymes; I25.10 Atherosclerotic heart disease of native coronary artery without angina pectoris; M43.16 Spondylolisthesis, lumbar region
CPT/HCPCS: 74177; Q9967

== ENCOUNTER → 2021-09-12 07:50 | Outpatient (CLI) | payer BC, SELFPAY ==
--- NOTE | 2021-09-12 08:12 | DI.CT.S_ITS ---
PROCEDURE: CT ABDOMEN PELVIS W CON INDICATIONS: Abnormal levels of other serum enzymes TECHNIQUE: After the administration of oral and intravenous contrast, axial sections were acquired from the lung bases to the pubic symphysis. Coronal and sagittal reformats were performed. For radiation dose reduction, the following was used: automated exposure control, adjustment of mA and/or kV according to patient size. COMPARISON:[facility], CT, CT ABDOMEN PELVIS W CON, 04/30/2021, 15:21. FINDINGS: Image quality: Excellent. Lung bases: Lung bases are clear. Heart size is normal. Calcification in the left posterior lung base. 3 millimeter nodule in the lingula series 3, image 3 unchanged compared to 04/30/2021. Solid organs: Liver: The liver has no mass or intrahepatic biliary ductal dilatation. The portal vein and hepatic veins are patent. Liver density is decreased consistent with hepatic steatosis. Biliary: The gallbladder has no gallstones, pericholecystic fluid, gallbladder wall thickening, or surrounding inflammatory change. Pancreas: The pancreas has no mass or ductal dilatation. There is no surrounding inflammation. Spleen: Normal size. There are no masses. Adrenals: No hypertrophy or nodules. Kidneys: No obstructive calculus or hydronephrosis. No solid mass. No cystic mass. Peritoneum and bowel: The distal esophagus and stomach are normal. The small bowel has a normal caliber and appearance. The terminal ileum is normal. The large bowel has a normal caliber and appearance. There is diverticulosis without evidence of diverticulitis. The appendix is normal. No free fluid or air. Nodes and vessels: No retroperitoneal or mesenteric adenopathy by size criteria. The aorta has atherosclerosis with no aneurysmal dilatation. Miscellaneous: No abdominal wall mass or hernia. PELVIS: Genitourinary: The bladder has no wall thickening or mass. No bladder calcifications. Bones: No suspicious bony lesions. Pars defect of L4 bilaterally with grade 2 anterolisthesis 1.6 cm. The L4-5 disc space is severely narrowed with endplate degenerative changes and osteophytes. There is central canal stenosis, unchanged compared to prior CT IMPRESSION: 1. No acute abdominal or pelvic abnormality. 2. Hepatic steatosis. 3. Bilateral pars defects of L4 with grade 2 anterolisthesis causing moderate central canal stenosis. Dictated by: Nirav López M.D. on 09/12/2021 at 10:20 Approved by: Nirav López M.D. on 09/12/2021 at 10:27
== END ==
PROVIDERS: PCP Internal Medicine; Referring Provider Internal Medicine; Visit Provider Internal Medicine
DX: R74.8 Abnormal levels of other serum enzymes (principal); K76.0 Fatty (change of) liver, not elsewhere classified; M43.16 Spondylolisthesis, lumbar region; M48.061 Spinal stenosis, lumbar region without neurogenic claudication
CPT/HCPCS: 74177

== ENCOUNTER 2023-07-23 09:28 | Day surgery (SDC) | payer BC, SELFPAY ==
--- NOTE | 2023-07-23 | PATH_ITS ---
[facility] Accession Number: [id number] No. of containers..01 Tissue . 01 Material submitted: . colon - CECAL POLYP . 01 Diagnosis: Colon, cecum, polyp biopsy: Sessile serrated adenoma. TXN 07/27/2023 1328 Local . 01 Electronically signed: . Eleuterio Zarate MD, Pathologist NPI- [id number] . 01 Gross description: . The specimen is received in formalin, labeled with two identifiers and cecal polyp, are three foy soft tissue fragments measuring 0.4-0.9 cm in greatest dimension. Submitted entirely in cassette A1. ([id number]) /FRR 07/25/2023 1620 Local . 01 Pathologist provided ICD-10: Z12.11 . 01 CPT . 060223 Specimen Comment: A courtesy copy of this report has been sent to [phone] Performed at: 01 [facility] Cytology [address] [place] [address], [place], [place] [id number] MD Tom Goddard MD Phone: [phone]
[2023-07-23] MEDS: LACTATED RINGERS 1,000 ML 100 ML IV (09:51)
[2023-07-23 09:54] VITALS: BP 153/81; PULSE 66; RESP 18; TEMP 36.7; O2SAT 95
--- NOTE | 2023-07-23 09:55 | P.HP_ITS ---
History of Present Illness History of Present Illness Date Patient Seen: 07/23/23 Time Patient Seen: 09:55 Chief complaint: [facility] Narrative: Ulisses is a 62-year-old man who is here for colonoscopy. He had one about 10 years ago that was normal. He has also had stool tests that have been normal. No family history of colon cancer. [facility] Medical History Foot pain (~2011) Hyperlipidemia Hypertension Left bundle branch block (LBBB) (2013) Rupture of right patellar tendon Seizures (1965) Splinter in skin Surgical History Anesthesia History of vasectomy (2008) Normal coronary angiogram (12/24/13) S/P tendon repair (2013) Family History Father Age: 91 Prostate cancer Hypertension Grandfather Stroke Grandmother Mental health problem Mother Age: 85 Hypertension Cancer of breast Grandfather Prostate cancer Sister Type I diabetes mellitus Sister Diabetes type 2, controlled Hypertension Grandmother No problems noted. Social History Smoking Status: Former smoker alcohol intake: current (A liter and a half of wine a week) substance use type: does not use Meds Home Medications and Allergies Home Medications Medication Instructions Recorded Confirmed Type Fish Oil (#FISH OIL) 1 iu PO Q DAY ##0 03/18/11 04/15/18 History ASPIRIN (Aspir-Low) 81 mg PO Q DAY ##0 10/14/11 04/15/18 History ibuprofen 600 mg tablet 600 mg PO Q8HP ##0 10/14/11 04/15/18 History ascorbic acid (vitamin C) 500 mg mg PO 04/15/18 04/15/18 History capsule cholecalciferol (vitamin D3) 50 2,000 unit PO DAILY 04/15/18 04/15/18 History mcg (2,000 unit) capsule lisinopril 10 mg tablet 10 mg PO Q DAY #60 tabs 04/22/18 07/23/23 Rx Allergies Allergy/AdvReac Type Severity Reaction Status Date / Time No Known Drug Allergies Allergy Verified 07/23/23 09:52 Exam Const General: No acute distress Resp Effort & Inspection: normal respiratory effort Assessment & Plan Assessment and plan (1) Colon cancer screening: Status: Acute Plan We reviewed the risks and benefits of colonoscopy for colon cancer screening and he would like to proceed.
[2023-07-23 10:56] VITALS: BP 116/56; PULSE 60; RESP 20; TEMP 37.2; O2SAT 95
--- NOTE | 2023-07-23 11:00 | PM.OP.COLON ---
Operative Date/Time/Diagnoses Date of procedure: 07/23/23 Time of procedure: 11:00 Pre-op diagnosis: Colon cancer screening Post-op diagnosis: same Procedure & Clinicians Study performed: Colonoscopy Same procedure as scheduled: Yes Surgeon: Elroy Johnson Procedure Notes Procedure in detail: Surgeon: Elroy Johnson MD Anesthesia: Yuli Whitfield CRNA Procedure: The patient was brought to the endoscopy suite, placed in left lateral decubitus position. The patient was connected to monitoring devices. A time-out was performed. Sedation was administered. Once the patient was adequately sedated, a digital rectal exam was performed and was normal. The scope was then inserted and advanced to the cecum where the appendiceal orifice was identified and photographed. The scope was then slowly withdrawn over greater than 6 minutes. The mucosa was thoroughly inspected. There was a 5 mm polyp in the cecum removed with a cold snare. The scope was retroflexed in the rectum. No other abnormalities were seen. The scope was straightened and removed. The patient was awakened and brought to recovery. Scope withdrawal time: 12 minutes Sedation time: 17 minutes EBL: 3 mL Findings: 5 mm polyp in the cecum Post-procedure Disposition: PACU
[2023-07-23 11:01] VITALS: BP 117/63; PULSE 59; RESP 20; TEMP 37.1; O2SAT 96
[2023-07-23 11:10] VITALS: BP 132/75; PULSE 59; RESP 17; O2SAT 96
== END 2023-07-23 11:16 | disposition home or self-care (01) ==
PROVIDERS: PCP Internal Medicine; Referring Provider Surgery; Visit Provider Surgery
PROC: 0DJD8ZZ Inspection of Lower Intestinal Tract, Via Natural or Artificial Opening Endoscopic (ICD-10-PCS; CPT 45378; principal; 2023-07-23 10:45)
DX: Z12.11 Encounter for screening for malignant neoplasm of colon (principal); D12.0 Benign neoplasm of cecum
CPT/HCPCS: 45385; J2704

== ENCOUNTER 2024-02-24 16:10 | Emergency (ER) | payer BC, SELFPAY ==
[2024-02-24 16:30] VITALS: BP 151/72; PULSE 59; RESP 16; TEMP 36.6; O2SAT 98; BMI 26.6
--- NOTE | 2024-02-24 16:32 | ED_ITS ---
HPI - Fall <Tonja Regalado PA-C - Last Filed: 02/24/24 17:51> General Chief Complaint: Fall Stated Complaint: L Leg Injury, Maybe Pulled Muscle Time Seen by Provider: 02/24/24 16:32 History of Present Illness HPI Narrative: 63-year-old male who was working at home was stepping off his utility trailer at approximately 330pm today, when he missed a step causing his left foot to go to ground. He felt pain in his left thigh he points to the lateral aspect. He did not impact the ground, he had no precipitating events, he did not strike his head. He is denying any pain on the right side. No treatment tried prior to arrival. He denies any prior injuries to this particular extremity. His girlfriend drove him here to be evaluated. History is significant for diabetes type 2, hyperlipidemia, left bundle branch block, hypertension, right patellar tendon rupture. All other systems are reviewed and are negative. Related Data Home Medications Medication Instructions Recorded Confirmed Fish Oil (#FISH OIL) 1 iu PO Q DAY ##0 03/18/11 04/15/18 ASPIRIN (Aspir-Low) 81 mg PO Q DAY ##0 10/14/11 07/23/23 ibuprofen 600 mg tablet 600 mg PO Q8HP ##0 10/14/11 04/15/18 ascorbic acid (vitamin C) 500 mg mg PO 04/15/18 04/15/18 capsule cholecalciferol (vitamin D3) 50 2,000 unit PO DAILY 04/15/18 04/15/18 mcg (2,000 unit) capsule atorvastatin 20 mg tablet 20 mg PO ONCE PM 07/23/23 07/23/23 clopidogrel 75 mg tablet 75 mg PO DAILY 07/23/23 07/23/23 metformin 500 mg tablet 250 mg PO BID 07/23/23 07/23/23 metoprolol succinate 25 mg 12.5 mg PO DAILY 07/23/23 07/23/23 tablet,extended release 24 hr Previous Rx's Medication Instructions Recorded lisinopril 10 mg tablet 10 mg PO Q DAY #60 tabs 04/22/18 Allergies Allergy/AdvReac Type Severity Reaction Status Date / Time No Known Drug Allergies Allergy Verified 07/23/23 09:52 Review of Systems <Tonja Regalado PA-C - Last Filed: 02/24/24 17:51> Review of Systems Narrative: All other systems reviewed and are negative. Patient History <Tonja Regalado PA-C - Last Filed: 02/24/24 17:51> Medical History Hyperlipidemia Hypertension Left bundle branch block (LBBB) (2013) Seizures (1965) Rupture of right patellar tendon Foot pain (~2011) Splinter in skin Surgical History Anesthesia S/P tendon repair (2013) Normal coronary angiogram (12/24/13) History of vasectomy (2008) Family History Father Age: 94 Prostate cancer Hypertension Grandfather Stroke Grandmother Mental health problem Mother Age: 88 Hypertension Cancer of breast Grandfather Prostate cancer Sister Type I diabetes mellitus Sister Diabetes type 2, controlled Hypertension Grandmother No problems noted. Social History Smoking Status: Former smoker alcohol intake: current substance use type: does not use Smoking Status: Former smoker alcohol intake frequency: 0-2 drinks per day Substance Use Type: does not use Exam <Tonja Regalado PA-C - Last Filed: 02/24/24 17:51> Initial Vital Signs Initial Vital Signs: Vital Signs Temperature 97.9 F 02/24/24 16:30 Pulse Rate 59 L 02/24/24 16:30 Respiratory Rate 16 02/24/24 16:30 Blood Pressure 151/72 H 02/24/24 16:30 Pulse Oximetry 98 02/24/24 16:30 Oxygen Delivery Method Room Air 02/24/24 16:30 Vital signs reviewed and are normal except for slightly elevated systolic in a known hypertension patient. Const Other: Smiling, seated in a wheelchair, no obvious distress. Pleasantly conversing. Chest Chest: normal inspection of the chest Resp Effort & Inspection: normal respiratory effort Auscultation: clear to auscultation bilaterally, no rales, no rhonchi and no wheezes Cardio Rate: regular rate Rhythm: regular rhythm GI Inspection: normal to inspection and no abdominal wall ecchymosis Back/Spine/Pelvis Back: normal to inspection, No back tenderness, No CVA tenderness and No ec chymosis Cervical Spine: normal cervical lordosis, cervical ROM normal and No cervical muscular tenderness Thoracic/Lumbar Spine: thoracic and lumbar spine normal to inspection and thoraco-lumbar ROM normal Sacroiliac Joints: nontender Skin General: no rashes or lesions noted, elasticity normal, turgor normal, No ecchymosis and No erythema Extrem Left lower extremity: normal to inspection, normal capillary refill, no joint enlargement and hip/thigh Details: normal to inspection, tenderness (Lateral thigh) Location: of the proximal upper leg and abnormal ROM Details: pain with active ROM Details: with ABduction and with flexion; no pain with passive ROM; no swelling and no ecchymosis; no edema Other: Able to stand from a seated position without assistance. He does have full weightbear on the left leg, he has pain in the lateral thigh along the ITB band. Negative pelvic rock test. Pain occurs here with active hip flexion but no pain with passive flexion. Similar exam with abduction he has pain but no pain with passive movement. No issues at all with hip extension, internal rotation. Pain with trying to raise his knee in a standing position, but no pain with passive movement. Nontender quadriceps tendon, nontender patellar tendon, no issues identified with the knee, lower leg, ankle or foot. No calf tenderness. Distal neurovascular is grossly intact. <Sharee Baker DO - Last Filed: 03/01/24 07:44> Initial Vital Signs Initial Vital Signs: Vital Signs Temperature 97.9 F 02/24/24 16:30 Pulse Rate 59 L 02/24/24 16:30 Respiratory Rate 16 02/24/24 16:30 Blood Pressure 151/72 H 02/24/24 16:30 Pulse Oximetry 98 02/24/24 16:30 Oxygen Delivery Method Room Air 02/24/24 16:30 Course <Tonja Regalado PA-C - Last Filed: 02/24/24 17:51> Vital Signs Vital signs: Vital Signs - 8 hr 02/24/24 16:30 Temperature 97.9 F Pulse Rate 59 L Respiratory Rate 16 Blood Pressure 151/72 H Pulse Oximetry 98 Oxygen Delivery Method Room Air <Sharee Baker DO - Last Filed: 03/01/24 07:44> Vital Signs Vital signs: Vital Signs - 8 hr 02/24/24 16:30 Temperature 97.9 F Pulse Rate 59 L Respiratory Rate 16 Blood Pressure 151/72 H Pulse Oximetry 98 Oxygen Delivery Method Room Air MDM - Fall <Tonja Regalado PA-C - Last Filed: 02/24/24 17:51> Imaging Data Extremity x-ray #1: My Impression: Deferred to radiologist's interpretation below. Radiologist's Impression: PROCEDURE: XR HIP W PEL IF DONE LT 2V INDICATIONS: fall, L hip pain TECHNIQUE: AP pelvis with lateral view(s) of the bilateral hip(s). COMPARISON: None. FINDINGS: Bones: No fractures or dislocations. Pelvic ring appears intact. No suspicious bony lesions. Mild congenitally shallow acetabuli bilaterally with mild lateral unroofing of the femoral heads. Mild degenerative arthritis. Soft tissues: The visualized bowel gas pattern is normal. No suspicious soft tissue calcifications. IMPRESSION: No acute bony abnormality. Congenitally shallow acetabuli. Mild degenerative change. Dictated by: George Mata M.D. on 02/24/2024 at 17:23 Approved by: George Mata M.D. on 02/24/2024 at 17:24 [facility] Narrative Medical decision making narrative: He had a mechanical missed step today and is complaining of left lateral thigh pain. There are no clinical findings on exam demonstrating hematoma, I do not believe he had a quadriceps tear but I do believe he did strain it, likely his vastus lateralis as well as his ITB band, and perhaps his TFL. He has good internal rotation flexion causes him the most discomfort as well as abduction. He had no focal bony tenderness of the pelvis or thigh. I have instructed him to purchase a neoprene thigh sleeve this will give him circumferential compression, warmth and also serve as a reminder that he has an injury. He declined Rickey wrap here. He has Tylenol at home and some leftover pain medic ation from his previous patella surgery on the contralateral side. He knows not to take any nonsteroidal anti-inflammatories with his Plavix though he has been taking ibuprofen in the past without any issue, ?low-dose?. I have asked him to follow up with his PCP, he may warrant a physical therapy evaluation and treatment. Red flag warning signs are reviewed in great detail. If he has increased swelling, pain, any discoloration, any coldness to the area or any other worrisome symptoms to please seek medical attention immediately. No clinical findings on examination to suggest a compartment syndrome but this can be a risk with Plavix and muscle or connective tissue tears. Discharge Plan Departure Patient Disposition: Home Clinical Impression: Sprain and strain of other specified sites of hip and thigh Instructions: DI for Muscle Strain Activity Restrictions/Additional Instructions: Please use the crutches and advance your weightbear as tolerated. I recommend a neoprene thigh sleeve which is available at most [employer] or online. This will give you a good compression, warmth and serve as a reminder that you have an injury. At this point I think you have a significant strain, there was no discoloration or swelling on the exam which makes me think there was no tear or bleeding but you are on Plavix and please monitor for any increased swelling or discoloration. If you have any worsening pain, develop any coldness to the area, numbness or tingling please seek medical attention right away. If you discover any new areas of discomfort then please have those evaluated as well. I do recommend ice directly over the area 10-15 minutes at a time but use a washcloth or clothing to minimize tissue freezer burn. Elevate, avoid new or recurrent injury. You may take Tylenol for pain, avoid nonsteroidal anti-inflammatories because you are on the clopidogrel also known as Plavix. You have leftover pain medication at home take those with caution as with any narcotic this can cause constipation, do not drive with this medication. Prescriptions: No Action Fish Oil (#FISH OIL) 1 iu PO Q DAY Qty: 0 ibuprofen 600 MG tablet 600 mg PO Q8HP Qty: 0 ASPIRIN (Aspir-Low) 81 mg PO Q DAY Qty: 0 lisinopril 10 mg tablet 10 mg PO Q DAY Qty: 60 0RF Rx Instructions: Patient still needs to establish with a new PCP prior to future fills. 04/22/18 ascorbic acid (vitamin C) 500 mg capsule PO cholecalciferol (vitamin D3) 2,000 unit capsule 2,000 unit PO DAILY atorvastatin 20 mg tablet 20 mg PO ONCE PM metformin 500 mg tablet 250 mg PO BID metoprolol succinate 25 mg tablet extended release 24 hr 12.5 mg PO DAILY clopidogrel 75 mg tablet 75 mg PO DAILY Referrals: Didi Solomon ARNP [Primary Care Provider] - Stand Alone Forms: Patient Portal/API/Survey ED Sign-out <Sharee Baker DO - Last Filed: 03/01/24 07:44> Cosign ED Attending Cosignature Attestation: I was immediately available in the department for consultation.
[2024-02-24 17:57] VITALS: BP 149/71; PULSE 60; RESP 16; O2SAT 99
== END 2024-02-24 17:59 | disposition home or self-care (01) ==
PROVIDERS: Emergency Provider Physician Assistant Medical; PCP Internal Medicine
DX: S73.102A Unspecified sprain of left hip, initial encounter (principal); W10.9XXA Fall (on) (from) unspecified stairs and steps, initial encounter
CPT/HCPCS: 73502; 99281; 99283

== ENCOUNTER → 2024-06-30 07:02 | Outpatient (CLI) | payer BC, SELFPAY ==
--- NOTE | 2024-06-30 07:03 | DI.CT.S_ITS ---
PROCEDURE: CT ABDOMEN PELVIS W CON INDICATIONS: ELEV LIPASE TECHNIQUE: After the administration of intravenous contrast, axial sections acquired from the lung bases to the pubic symphysis. Coronal and sagittal reformats were performed. For radiation dose reduction, the following was used: automated exposure control, adjustment of mA and/or kV according to patient size. COMPARISON: [facility], CT, CT ABDOMEN PELVIS W CON, 09/12/2021, 8:59. [facility], CT, CT ABDOMEN PELVIS W CON, 04/30/2021, 15:21. FINDINGS: Image quality: Diagnostic. Lower Chest: No significant findings. ABDOMEN: Liver: No solid mass. Gallbladder: No radiopaque gallstones or wall thickening. Biliary ducts: No biliary dilation. Pancreas: No ductal dilation. Spleen: Size is within normal limits. Adrenal Glands: No adrenal nodules. Kidneys and Ureters: No hydronephrosis. No solid mass. No complex renal cystic lesion which requires follow up. Stomach and Bowel: Normal colonic caliber, without significant wall thickening. Peritoneum: No abnormal intraperitoneal fluid. No free air. Ventral Wall: No significant ventral hernia. Abdominal Nodes: No retroperitoneal or mesenteric adenopathy by size criteria. Vessels: Aorta and inferior vena cava are normal in size. PELVIS: Pelvic Organs: Unremarkable. Bladder: No bladder wall thickening, accounting for underdistention. Pelvic Nodes: No enlarged lymph nodes. Miscellaneous: No inguinal hernias are seen. Bones: No aggressive osseous abnormality. L4-L5 degenerative disc disease and associated spinal stenosis is again noted with associated grade 2 anterolisthesis previously present IMPRESSION: Normal examination except for moderately severe degenerative disc disease with associated spinal stenosis at L4-5 is again seen with grade 2 anterolisthesis of L4 on L5.. This was previously present. Please note that [id number] pancreatitis may not be identifiable by CT scanning. Dictated by: Varun Hood M.D. on 06/30/2024 at 11:47 Approved by: Varun Hood M.D. on 06/30/2024 at 11:50
[2024-06-30 07:35] LABS: Estimated Glomerular Filt Rate > 60 mL/min (>60)
== END ==
PROVIDERS: Radiology Diagnostic Radiology; PCP Internal Medicine; Referring Provider Internal Medicine; Visit Provider Internal Medicine
DX: R74.8 Abnormal levels of other serum enzymes (principal); I10 Essential (primary) hypertension; M51.369 Other intervertebral disc degeneration, lumbar region without mention of lumbar back pain or lower extremity pain; M48.061 Spinal stenosis, lumbar region without neurogenic claudication; M43.16 Spondylolisthesis, lumbar region
CPT/HCPCS: 36415; 74177; 82565; Q9967